=== PATIENT | female | born 1970 | race African-American/Black ===

== ENCOUNTER 2024-10-04 15:07 | Emergency (ER) | payer OTHER ==
[~2024-10-04] VITALS: Ht 162.6 cm; Wt 90.9 kg
[2024-10-04 15:30] VITALS: BP 114/72; PULSE 82; RESP 16; TEMP 98.1; O2SAT 100
== END 2024-10-04 18:15 | disposition left against medical advice (07) ==
LOC: EMS 15:07
DX: M70.52 Other bursitis of knee, left knee (principal); M79.89 Other specified soft tissue disorders; F32.A Depression, unspecified
CPT/HCPCS: 99283